=== PATIENT | male | born 1965 | race Caucasian/White ===

== ENCOUNTER 2023-01-09 20:40 | Emergency (ER) | payer OTHER ==
[~2023-01-09] VITALS: Ht 177.8 cm; Wt 81.8 kg
[~2023-01-09 20:40] MED LIST: ACIT25CA3 PO; ARIP10TA38 PO; DULO-113 PO; RANI150T7 PO; TAMS-13 PO
[2023-01-09 20:51] VITALS: BP 148/80
[2023-01-09] MEDS ORDERED: DIVA125T32 PO (20:59)
[2023-01-09] MEDS ORDERED: LORA-999 PO (20:59)
[2023-01-09] MEDS ORDERED: DIVA500T53 PO (21:02)
[2023-01-09] MEDS ORDERED: TRAZ-252 PO (21:02)
[2023-01-09] MEDS ORDERED: LORA-1000 PO (21:02)
[2023-01-09] MEDS ORDERED: TRIA15CR49 TP (21:02)
[2023-01-09] MEDS ORDERED: ATOR20TA65 PO (21:02)
[2023-01-09] MEDS ORDERED: KETOROLAC TROMETHAMINE 60 MG/2 ML VIAL IM ONE (22:15)
[2023-01-09] MEDS ORDERED: HYDR-4723 PO (23:26)
[2023-01-09] MEDS ORDERED: IBUP-1554 PO (23:26)
== END 2023-01-10 00:05 | disposition home or self-care (01) ==
LOC: EMS 20:41
DX: S20.211A Contusion of right front wall of thorax, initial encounter (principal); F41.9 Anxiety disorder, unspecified; F32.A Depression, unspecified; K21.9 Gastro-esophageal reflux disease without esophagitis; Z88.0 Allergy status to penicillin; V19.9XXA Pedal cyclist (driver) (passenger) injured in unspecified traffic accident, initial encounter; Y93.55 Activity, bike riding; Y92.89 Other specified places as the place of occurrence of the external cause; Y99.8 Other external cause status
CPT/HCPCS: 99283; 71101; 96372; J1885